=== PATIENT | female | born 1995 | race Hispanic/Latino ===

== ENCOUNTER 2024-01-05 03:33 | Emergency (ER) | payer MEDICARE ==
[2024-01-05] MEDS ORDERED: Morphine 4 MG/ML VIAL ONE (04:02)
[2024-01-05] MEDS ORDERED: Ondansetron PF 4 MG/2 ML Vial ONE (04:02)
[2024-01-05 04:50] LABS: #Basophils 0.04 10x3/uL (0.0-0.2); %Basophils 0.4 % (0.0-1.0); %Eosinophils 1.5 % (0.0-10.0); %Lymphocytes 34.4 % (21.0-51.0); %Monocytes 6.6 % (0.0-10.0); %Neutrophils 56.7 % (42.0-75.0); Hematocrit 33.5 % (36.0-47.0); Hemoglobin 10.7 g/dL (12.0-16.0); Mean Corpuscular HGB CONC 31.9 g/dL (32.0-36.0); Mean Corpuscular Volume 84.4 fL (78.0-98.0); Mean Platelet Volume 10.5 fL (7.4-10.4); Platelet Count 359 10x3/uL (130-400); RBC Distribution Width 14.1 % (11.5-14.5); Red Blood Cell (RBC) Count 3.97 mill/uL (4.20-5.40)
[2024-01-05 04:54] LABS: BHCG - Serum Negative (NEGATIVE); Pregs Control Background? CLEAR/WHITE (CLR/WHITE); Pregs Control Bar Appear? YES (CONTROL BAR)
[2024-01-05 04:57] LABS: ALT (SGPT) 12 U/L (8-55); AST (SGOT) 12 U/L (5-34); Albumin 3.2 g/dL (3.5-5.0); Alkaline Phosphatase 56 U/L (40-110); Anion Gap 14 mmol/L (10-20); BUN (Urea Nitrogen) 13 mg/dL (7.0-18.7); Bilirubin, Total 0.3 mg/dL (0.2-1.2); Calc. Creatinine Clearance 0 mL/min (70-130); Calcium 8.7 mg/dL (7.8-10.44); Carbon Dioxide 19 mmol/L (22-29); Chloride 108 mmol/L (98-107); Estimated GFR 108; Globulin 4.3 g/dL (2.4-3.5); Glucose 106 mg/dL (70-105); Lipase 13 U/L (8-78); Potassium 3.5 mmol/L (3.5-5.1); Protein, Total 7.5 g/dL (6.0-8.3); Sodium 137 mmol/L (136-145)
[2024-01-05] MEDS ORDERED: Ketorolac Tromethamine 30 MG (1 mL) VIAL ONE (05:50)
== END 2024-01-05 07:06 | disposition home or self-care (01) ==
LOC: ERS 03:33
DX: K80.50 Calculus of bile duct without cholangitis or cholecystitis without obstruction (principal)
CPT/HCPCS: 76705; 80053; 83690; 84703; 85025; 96374; 96375; 99284; J1885; J2272; J2405

== ENCOUNTER 2024-01-19 12:54 | Outpatient (CLI) | payer MEDICARE, MEDICAID ==
[2024-01-19 13:28] LABS: BHCG - Serum Negative (NEGATIVE); Pregs Control Bar Appear? YES (CONTROL BAR)
[2024-01-19 13:29] LABS: Pregs Control Background? CLEAR/WHITE (CLR/WHITE)
[2024-01-19] MEDS ORDERED: Sincalide 5 MCG VIAL ONE (14:57)
[2024-01-19] MEDS ORDERED: Sterile Water 10 ML ONE (14:57)
[2024-01-19] MEDS ORDERED: Bacteriostatic Normal Saline 30 ML VIAL ONE (14:58)
== END 2024-01-19 12:55 | disposition home or self-care (01) ==
LOC: NM 12:54
PROVIDERS: ATTEND Surgery
DX: R10.11 Right upper quadrant pain (principal); Z32.00 Encounter for pregnancy test, result unknown
CPT/HCPCS: 78227; 84703; A9537; J2805; 36415

== ENCOUNTER 2024-10-23 20:24 | Emergency (ER) | payer MEDICAID, MEDICARE ==
[2024-10-23] MEDS ORDERED: Acetaminophen 500 MG TAB ONE (20:33)
[2024-10-23] MEDS ORDERED: Ibuprofen 200 MG TAB ONE (20:34)
== END 2024-10-23 21:18 | disposition home or self-care (01) ==
LOC: ERS 20:24
DX: U07.1 COVID-19 (principal)
CPT/HCPCS: 99283

== ENCOUNTER 2024-11-29 00:44 | Emergency (ER) | payer MEDICARE ==
[2024-11-29] MEDS ORDERED: Metoclopramide HCl 10 MG (2 mL) VIAL ONE (01:26)
[2024-11-29] MEDS ORDERED: Ketorolac Tromethamine 30 MG (1 mL) VIAL ONE (01:26)
[2024-11-29] MEDS ORDERED: diphenhydrAMINE 50 MG/ML VIAL ONE (01:35)
[2024-11-29 01:43] LABS: #Basophils 0.05 10x3/uL (0.0-0.2); #Eosinophils 0.12 10x3/uL (0.0-0.7); #Monocytes 0.83 10x3/uL (0.11-0.59); #Neutrophils 5.92 10x3/uL (1.40-6.50); %Basophils 0.5 % (0.0-1.0); %Eosinophils 1.1 % (0.0-10.0); %Lymphocytes 33.7 % (21.0-51.0); %Monocytes 7.9 % (0.0-10.0); %Neutrophils 56.4 % (42.0-75.0); Hematocrit 37.2 % (36.0-47.0); Hemoglobin 11.7 g/dL (12.0-16.0); Mean Corpuscular Hemoglobin 26.8 pg (27.0-31.0); Mean Corpuscular Volume 85.3 fL (78.0-98.0); Platelet Count 379 10x3/uL (130-400); Red Blood Cell (RBC) Count 4.36 mill/uL (4.20-5.40); White Blood Cell (WBC) Count 10.50 10x3/uL (4.8-10.8)
[2024-11-29 01:52] LABS: BHCG - Serum Negative (NEGATIVE); Pregs Control Background? CLEAR/WHITE (CLR/WHITE); Pregs Control Bar Appear? YES (CONTROL BAR)
[2024-11-29 02:01] LABS: Acetaminophen Less than 10 mcg/mL (Less than 10); Salicylate Less than 8.0 mg/dL (Less than 8.0)
[2024-11-29 02:09] LABS: ALT (SGPT) 14 U/L (Less than 34); AST (SGOT) 27 U/L (11-34); Albumin 3.8 g/dL (3.1-4.5); Alkaline Phosphatase 64 U/L (40-110); Anion Gap 17 mmol/L (10-20); BUN (Urea Nitrogen) 12 mg/dL (7.0-18.7); Bilirubin, Total 0.3 mg/dL (0.3-1.2); Calc. Creatinine Clearance 0 mL/min (70-130); Calcium 9.3 mg/dL (7.8-10.44); Carbon Dioxide 23 mmol/L (22-29); Chloride 103 mmol/L (98-107); Globulin 4.2 g/dL (2.4-3.5); Glucose 124 mg/dL (70-105); Potassium 4.5 mmol/L (3.5-5.1); Sodium 138 mmol/L (136-145)
== END 2024-11-29 03:35 | disposition home or self-care (01) ==
LOC: ERS 00:44
DX: R51.9 Headache, unspecified (principal)
CPT/HCPCS: 70450; 80053; 80307; 84703; 85025; 86141; J1200; J1885; J2765; J2919; 96365; 96366; 96375

== ENCOUNTER 2024-12-30 12:41 | Outpatient (CLI) | payer MEDICARE | END 2024-12-30 12:42 | disposition home or self-care (01) | LOC: MRI 12:41 | DX: R51.9 Headache, unspecified (principal); R47.01 Aphasia; J34.89 Other specified disorders of nose and nasal sinuses | CPT/HCPCS: 70553; 76376 ==